=== PATIENT | female | born 1940 | race Caucasian/White ===

== ENCOUNTER 2017-01-17 22:26 | Emergency (ER) | payer MEDICARE ==
[2016-04-25 08:29] VITALS: BMI 24.8
[~2017-01-17 22:26] MED LIST: AMBIEN10 MG PO; BACTRIM DS TABL1 TAB PO; ELIQUIS2.5 MG PO; HYDROCODONE-APA1 TAB PO; MACROBID100 MG PO; MELOXICAM TAB 15M; MOBIC7.5 MG PO; MS CONTIN15 MG PO; OXYCODONE HCL5 MG PO; PAXIL20 MG PO; ULTRAM50 MG PO; XANAX2 MG PO
== END 2017-01-18 02:38 | disposition home or self-care (01) ==
LOC: D.ER 22:26
DX: S30.0XXA Contusion of lower back and pelvis, initial encounter (principal); W05.0XXA Fall from non-moving wheelchair, initial encounter; Y93.89 Activity, other specified; Y92.019 Unspecified place in single-family (private) house as the place of occurrence of the external cause; S40.011A Contusion of right shoulder, initial encounter

== ENCOUNTER 2017-08-14 08:02 | Day surgery (SDC) | payer MEDICARE ==
[~2017-08-14] VITALS: Ht 157.5 cm; Wt 68.0 kg
--- NOTE | ~2017-08-14 | OP ---
PATIENT NAME: ISIS TIMMONS MEDICAL RECORD: [id number] :38 LOCATION:[facility] ADMISSION DATE: SURGEON: MADAN MAURER DO DATE OF OPERATION: 08/14/2017 PROCEDURE PERFORMED: Right endoscopic carpal tunnel release. PREOPERATIVE DIAGNOSIS: Right carpal tunnel syndrome. POSTOPERATIVE DIAGNOSIS: Right carpal tunnel syndrome. INDICATIONS: Ms. Timmons is a 76-year-old female who presented to my office after having a nerve conduction study that showed severe carpal tunnel on the right and she wanted something done. She is numb in her fingers and tired of the pain waking her up. She also had on the left, but wanted to do the right one first due to the severity of the right one. She was consented for the procedure and warned of the risks and benefits including possible nerve injury and she consented to the procedure. DESCRIPTION OF PROCEDURE: The patient was taken to the operative suite, laid in supine position, given a gram of Ancef preoperatively. Once that was done, a timeout was performed. Everyone was in agreement with the correct side, site, and patient. The right upper extremity was prepped and draped in sterile fashion with the tourniquet above the elbow under the drapes. After it was draped and a timeout was performed, the right upper extremity was exsanguinated with an Esmarch and the tourniquet was inflated. The tourniquet was up for a total of 12 minutes during the procedure. Then, the hand was placed palm up and an incision was marked out just proximal to the wrist crease and over the transverse incision over the palmaris longus. The skin was incised at that time with a 15 blade and then careful dissection was made down to the forearm fascia with Ragnells and the forearm fascia was going through with the Ragnells. Median nerve was encountered. The distal forearm fascia was then released proximally at the incision site with a pickup and scissors and then the carpal tunnel was entered with the dilators using the hook of the hamate as a landmark and then a dilator directly on top of the nerve and then the sheath was put into place. Once the sheath was put into place, the rasp was used on the transverse carpal ligament ensuring there was only the ligament that was being cut and the probe also was used for the same purpose. Then, the blade was brought in and the transcarpal ligament was dissected and divided and the sheath was removed. This was all done under direct visualization with the camera. After that, the camera was removed and the large end of the Ragnell was used to look in the carpal tunnel to ensure that the transverse carpal ligament had been incised and there were no fibers holding it together, which was indeed the case. We then injected 10 mL of 0.25% Marcaine around the incision site and up around the site where the transverse carpal ligament was incised and then the tourniquet had been let down. There was no brisk bleeding encountered. The incision was then closed with 5-0 Monocryl with inverted interrupted sutures and then Steri-Strips were placed over the wound. Adaptic, 4 x 4 and Webril was then wrapped around the hand and wrist and a Coban was lightly placed around the hand. The patient was awakened and taken to recovery in stable condition. Blood loss was minimal. TRANSINT:[id number] Voice Confirmation ID: [id number] DOCUMENT ID: [id number] OPERATIVE REPORT [id number] ISIS TIMMONS MICHAEL D, DO at 1348 CC: [id number] DICTATION DATE: 08/14/17 1102 SEO PROFESSIONAL: 08/14/17 1226 [facility] [address] [place] [address]
[2017-08-14 08:52] LABS: HEMATOCRIT 38.3 % (36.0-48.0); HEMOGLOBIN 12.3 g/dL (12-16); MCH 29.6 pg (26.0-34.0); MCHC 32.1 g/dL (31.0-37.0); MCV 92.3 fL (80.0-100.0); MEAN PLATELET VOLUME 11.3 fL (7.4-10.4); RBC 4.15 10x6/uL (4.00-5.40); RDW 13.9 % (11.5-14.5); WBC 6.7 10x3/uL (4.8-10.8)
[2017-08-14] MEDS ORDERED: OXYBUTYNIN CHLOR5 MG PO (09:09)
[2017-08-14] MEDS ORDERED: GABAPENTIN100 MG PO (09:10)
[2017-08-14] MEDS ORDERED: ZOLOFT25 MG PO (09:11)
[2017-08-14] MEDS ORDERED: DULCOLAX10 MG/SUPP RC (09:12)
[2017-08-14] MEDS ORDERED: SENNA LAXATIVE8.6 MG PO (09:13)
[2017-08-14] MEDS ORDERED: PHENERGAN25 M1 PO (09:14)
[2017-08-14] MEDS ORDERED: ASPER-FLEX85 GM TOPICAL (09:15)
[2017-08-14] MEDS ORDERED: VITAMIN D5000 UNIT PO (09:15)
[2017-08-14] MEDS ORDERED: MELATONIN 3 MG1 TAB PO (09:16)
[2017-08-14] MEDS ORDERED: MUCUS RELIEF400 MG PO (09:16)
[2017-08-14] MEDS ORDERED: BISACODYL5 MG PO (09:17)
[2017-08-14] MEDS ORDERED: ACETAMINOPHEN325 MG PO (09:18)
[2017-08-14] MEDS ORDERED: CYCLOBENZAPRINE10 MG PO (09:18)
[2017-08-14] MEDS ORDERED: DESERYL100 MG PO (09:19)
[2017-08-14 09:27] VITALS: BP 103/63; Ht 157.5 cm; Wt 68.0 kg
[2017-08-14] MEDS ORDERED: HYDROCODONE-APA1 TAB PO (10:54)
[2017-08-14] MEDS ORDERED: DURICEF500 MG PO (10:55)
== END 2017-08-14 12:55 | disposition home or self-care (01) ==
LOC: D.OPS 08:02 → D.PAN 08:30 → D.OPS 10:30 → D.PAN 10:30 → D.OPS 11:00 → D.PAN 11:00 → D.OPS 12:55
PROVIDERS: Anesthesiology
DX: G56.01 Carpal tunnel syndrome, right upper limb (principal); M19.90 Unspecified osteoarthritis, unspecified site; Z01.812 Encounter for preprocedural laboratory examination

== ENCOUNTER 2017-08-31 08:30 | Day surgery (SDC) | payer MEDICARE ==
[~2017-08-31] VITALS: Ht 157.5 cm; Wt 68.0 kg
--- NOTE | ~2017-08-31 | OP ---
PATIENT NAME: ISIS TIMMONS MEDICAL RECORD: [id number] :38 LOCATION:[facility] ADMISSION DATE: SURGEON: MADAN MAURER DO DATE OF OPERATION: 08/31/2017 PROCEDURE PERFORMED: Left endoscopic carpal tunnel release. PREOPERATIVE DIAGNOSIS: Left carpal tunnel syndrome. POSTOPERATIVE DIAGNOSIS: Left carpal tunnel syndrome. INDICATIONS: Ms. Timmons is a 76-year-old female who had bilateral carpal tunnel release of the right one done 2 weeks ago and one in the left one done again today. She is scheduled for the surgery. She is aware of the risks and benefits of the procedure and consents to the procedure. SURGEON: Madan Maurer DO TOURNIQUET TIME: 11 minutes. COMPLICATIONS: None. ESTIMATED BLOOD LOSS: Minimal. DESCRIPTION OF PROCEDURE: The patient was taken to the operative suite, laid in supine position. The left upper extremity was prepped and draped in sterile fashion with a tourniquet under the drapes above the elbow. Once she was prepped and draped, a timeout was performed, everyone was in agreement with the correct site, side, and patient. The left upper extremity was exsanguinated with an Esmarch and then the tourniquet was inflated. The incision was marked out proximal to the wrist crease, just over the palmaris longus tendon approximately 1 cm in length. Once the skin incision was made, careful blunt dissection was made with 2 Ragnells down to the carpal tunnel itself. Median nerve was encountered in the proximal forearm fascia. The forearm fascia was released from distal to proximal with the scissors directly on top of the median nerve, being very careful as to not touch the nerve. The carpal tunnel was then opened with the dilators and once the was dilators dilated up enough to put the sheath and the sheath was put into place and the camera was put in and the transverse carpal ligament was probed and rasped and then the knife was brought in through the sheath and under direct visualization with the camera, it was released. Once it was released, the camera, sheath, and knife were removed and the remaining bits of transverse carpal ligament that were not fully released were released with scissors under direct visualization with the loops. Once this was done, the tourniquet was let down. Pressure was held on the wound and the incision site was closed with 5-0 Monocryl with inverted interrupted sutures and then Steri-Strips placed on the wound. Ten mL of 0.5% Marcaine without epinephrine was then injected around the area. Then, Adaptic, Telfa, Kerlix and Coban was lightly wrapped on the left arm, wrist area and the patient was awakened and taken to recovery in stable condition. TRANSINT:[id number] Voice Confirmation ID: [id number] DOCUMENT ID: [id number] OPERATIVE REPORT [id number] ISIS TIMMONS MICHAEL D, DO at 1431 CC: [id number] DICTATION DATE: 08/31/17 1612 GUEST SERVICES ATTENDANT: 08/31/17 2130 [facility] 08/31/17 [id number] [place] [address]
[~2017-08-31 08:30] MED LIST changes: +ACETAMINOPHEN325 MG PO; +ASPER-FLEX85 GM TOPICAL; +BISACODYL5 MG PO; +CYCLOBENZAPRINE10 MG PO; +DESERYL100 MG PO; +DULCOLAX10 MG/SUPP RC; +DURICEF500 MG PO; +GABAPENTIN100 MG PO; +MELATONIN 3 MG1 TAB PO; +MUCUS RELIEF400 MG PO; +OXYBUTYNIN CHLOR5 MG PO; +PHENERGAN25 M1 PO; +SENNA LAXATIVE8.6 MG PO; +VITAMIN D5000 UNIT PO; +ZOLOFT25 MG PO
[2017-08-31 09:24] LABS: HEMATOCRIT 40.5 % (36.0-48.0); HEMOGLOBIN 12.9 g/dL (12-16); MCH 29.6 pg (26.0-34.0); MCHC 31.9 g/dL (31.0-37.0); MCV 92.9 fL (80.0-100.0); MEAN PLATELET VOLUME 10.8 fL (7.4-10.4); RBC 4.36 10x6/uL (4.00-5.40); RDW 13.9 % (11.5-14.5); WBC 5.5 10x3/uL (4.8-10.8)
[2017-08-31 09:54] VITALS: BP 122/50; Ht 157.5 cm; Wt 68.0 kg
[2017-08-31] MEDS ORDERED: DURICEF500 MG PO (16:07)
[2017-08-31] MEDS ORDERED: HYDROCODONE-APA1 TAB PO (16:07)
== END 2017-08-31 18:00 | disposition home or self-care (01) ==
LOC: D.OPS 08:30 → D.PAN 11:15 → D.OPS 11:15
PROVIDERS: Anesthesiology
DX: G56.02 Carpal tunnel syndrome, left upper limb (principal); Z01.812 Encounter for preprocedural laboratory examination

== ENCOUNTER 2018-03-29 15:30 | Inpatient (IN) | payer MEDICARE, MEDICAID ==
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
--- NOTE | ~2018-03-29 | PN ---
PATIENT:ISIS VARGHESE MEDICAL RECORD: [id number] LOCATION:[facility]113 ADMISSION DATE: 03/29/18 PROGRESS NOTE DATE OF SERVICE: 04/03/2018 SUBJECTIVE: The patient's case was discussed with staff. She has no new complaint. OBJECTIVE: She denies that she would seek to harm herself, but becomes tearful when talking about her past experiences with former and her mother. She complains that her back is still hurting. ASSESSMENT: No change in diagnoses. PLAN: Supportive and educational interventions were made. The patient will be given a lidocaine patch to help with her back pain. TRANSINT:[id number] Voice Confirmation ID: [id number] DOCUMENT ID: [id number] SELENA LOCKWOOD MD at 1234 CC: [id number] DICTATION DATE: 04/03/18 1417 ADVERTISING SOLICITOR: 04/03/18 1424 ADM [id number] [place] [address]
--- NOTE | ~2018-03-29 | PN ---
PATIENT:ISIS VARGHESE MEDICAL RECORD: [id number] LOCATION:[facility] Mac ADMISSION DATE: 03/29/18 PROGRESS NOTE DATE OF SERVICE: 03/31/2018 SUBJECTIVE: The patient's case was discussed with staff. She has no new complaint. OBJECTIVE: The patient denies intent to harm herself or others. She generally tolerates her medicines well. Her mood is euthymic. She is reading the paper and telling me about its contents. ASSESSMENT: No change in diagnoses. PLAN: Brief supportive and educational interventions were made. Long-term prognosis is guarded. The patient will be maintained on current medicines, which I have reviewed. I am going to increase the dose of the Lexapro slightly. She continues to insist that her suicidal statements at the [facility] were taken out of context and she was simply expressing frustration. I find that difficult to believe. I think she did say these things with emotional force, but I think it was probably related to attention seeking character pathology rather than true intent to harm herself. There is no question that she said what was reported. She freely admits it, she just simply says it was taken out of context. I do want to see her improve with her mood a little more and be on a reasonable dose of the Lexapro before I discharge her. TRANSINT:[id number] Voice Confirmation ID: [id number] DOCUMENT ID: [id number] SELENA LOCKWOOD MD at 1059 CC: [id number] DICTATION DATE: 03/31/18 1108 RACING DRIVER: 03/31/18 1125 ADM IN [id number] [place] [address]
--- NOTE | ~2018-03-29 | DS ---
PATIENT:ISIS VARGHESE :36 MEDICAL RECORD: [id number] DISCHARGE SUMMARY ADMISSION DATE: 03/29/18 DISCHARGE DATE: 04/05/18 IDENTIFYING DATA: The patient is 77 years old and she was admitted to the hospital on a voluntary basis. CHIEF COMPLAINT: Suicidal statements. HISTORY OF PRESENT ILLNESS: The patient lives in the [facility]. The group home referred her to us because she was threatening to kill herself. Specifically, the patient said that she was going to jump through a window and cut herself with a broken glass. She freely admits to making these statements, but says she thinks the group home has blown the situation out of proportion. She tells me that she is very angry, frustrated, and depressed. She is upset with her oldest son, who has in her words kicked her out of the house and made her homeless and for this reason, she has to live in the group home. She has been in the group home for 6 months, so I am not clear why all of a sudden this is an issue. She endorses lots of vegetative depressive symptoms. HOSPITAL COURSE: The patient was admitted to the hospital and comprehensively evaluated from both a medical, psychological, and social standpoint. She was treated with both mood stabilizing and antidepressant medications and showed significant improvement. She was subsequently transferred back to the group home having made no suicidal threats. DISCHARGE DIAGNOSES: AXIS I: Major depression, moderate severity, without psychotic features. AXIS II: Deferred. AXIS III: Hypertension, osteoarthritis, hearing impairment, overactive bladder, constipation, gastroesophageal reflux disease, and fibromyalgia. AXIS IV: Moderate stressors. AXIS V: Global assessment of functioning is 45. PLAN: I suspect the patient is somewhat dramatic and prone to hyperbole and that was the reason she made these statements that precipitated the admission. Nevertheless, she does have clear and convincing symptoms and signs of a major depressive illness and she has been placed on medication. I have referred her for outpatient counseling and I think that she is not an acute danger to herself or others. She is clearly angry and upset and it may be very justifiable, but at this time I do not think she is dangerous. Follow up will be with outpatient mental health and her primary care physician at the group home. TRANSINT:[id number] Voice Confirmation ID: [id number] DOCUMENT ID: [id number] SELENA LOCKWOOD MD at 1210 CC: [id number] DICTATION DATE: 04/13/18 1226 REGIONAL EXTENSION SERVICE SPECIALIST: 04/13/18 1242 DIS IN 04/05/18 [facility] [address] [place] [address]
--- NOTE | ~2018-03-29 | PN ---
PATIENT:ISIS VARGHESE MEDICAL RECORD: [id number] LOCATION:[facility] ADMISSION DATE: 03/29/18 PROGRESS NOTE DATE OF SERVICE: 04/01/2018 SUBJECTIVE: The patient's case was discussed with staff. She has no new complaint. OBJECTIVE: The patient has a near euthymic mood and certainly no thoughts of harming herself or others. She is tolerating her medications well. ASSESSMENT: No change in diagnoses. PLAN: The patient's Lexapro is going to be increased to 15 mg daily. I anticipate she can be transitioned out of the hospital soon if this level of improvement is maintained. TRANSINT:[id number] Voice Confirmation ID: [id number] DOCUMENT ID: [id number] SELENA LOCKWOOD MD at 1406 CC: [id number] DICTATION DATE: 04/01/18 1146 HEATING UNIT MECHANIC: 04/01/18 1204 ADM IN [id number] [place] [address]
--- NOTE | ~2018-03-29 | PN ---
PATIENT:ISIS VARGHESE MEDICAL RECORD: [id number] LOCATION:[facility]aja[facility]ICKShasha Lamb113 ADMISSION DATE: 03/29/18 PROGRESS NOTE DATE OF SERVICE: 04/05/2018 SUBJECTIVE: The patient's case was discussed with staff. She has no new complaint. OBJECTIVE: The patient is displaying a euthymic mood and has no thoughts of harming herself or others. I have gotten approval from the office of long-term care today and I am going to [facility]. ASSESSMENT: No change in diagnoses. PLAN: As above. The [facility] to the [facility] today. Followup will be with her primary care [facility] physician. TRANSINT:[id number] Voice Confirmation ID: [id number] DOCUMENT ID: [id number] SELENA LOCKWOOD MD at 1243 CC: [id number] DICTATION DATE: 04/05/18 1308 PHYSICALLY IMPAIRED TEACHER: 04/05/18 1315 DIS IN 04/05/18 [id number] [place] [address]
--- NOTE | ~2018-03-29 | PN ---
PATIENT:ISIS VARGHESE MEDICAL RECORD: [id number] LOCATION:BRISSA LambFranco ADMISSION DATE: 03/29/18 PROGRESS NOTE DATE OF SERVICE: 04/04/2018 SUBJECTIVE: The patient's case was discussed with staff. She has no new complaint. OBJECTIVE: The patient denies intent to harm herself or others. She is tolerating her medicines well. Eye contact is fair. ASSESSMENT: No change in diagnoses. PLAN: The patient would like a lidocaine patch for her shoulder and her lower back. I will order another one for her. TRANSINT:[id number] Voice Confirmation ID: [id number] DOCUMENT ID: [id number] SELENA LOCKWOOD MD at 1222 CC: [id number] DICTATION DATE: 04/04/18 1303 PETROLEUM ANALYST: 04/04/18 1336 ADM IN [id number] [place] [address]
[2018-03-29 16:41] LABS: BASOPHILS 0.5 % (0-2); EOSINOPHILS 4.6 % (0-7); HEMATOCRIT 39.5 % (36.0-48.0); HEMOGLOBIN 12.9 g/dL (12-16); IMMATURE GRANULOCYTES 0.3 % (0-5); LYMPHOCYTES 29.8 % (15-50); MCH 30.1 pg (26.0-34.0); MCHC 32.7 g/dL (31.0-37.0); MCV 92.1 fL (80.0-100.0); MEAN PLATELET VOLUME 9.6 fL (7.4-10.4); MONOCYTES 5.7 % (2-11); NEUTROPHILS 59.1 % (40-80); RBC 4.29 10x6/uL (4.00-5.40); RDW 14.4 % (11.5-14.5); WBC 7.4 10x3/uL (4.8-10.8)
[2018-03-29 16:58] LABS: APPEARANCE HAZY (CLEAR); BILIRUBIN NEGATIVE (NEGATIVE); COLOR YELLOW (YELLOW); GLUCOSE NEGATIVE (NEGATIVE); KETONE NEGATIVE (NEGATIVE); NITRITE POSITIVE (NEGATIVE); PROTEIN TRACE mg/dL (NEGATIVE); UROBILINOGEN NORMAL (NORMAL)
[2018-03-29 17:00] VITALS: BP 149/63; BMI 28.8
[2018-03-29 17:10] LABS: BACTERIA MODERATE /hpf (NONE SEEN); RED CELLS - URINE 0-5 /hpf (0-5); WHITE CELLS - URINE >50 /hpf (0-5)
[2018-03-29 17:14] LABS: PLATELET COUNT 224 10x3/uL (130-400)
[2018-03-29 17:16] LABS: ALBUMIN 3.2 g/dL (3.4-5.0); ANION GAP 11.3 mmol/L (8-16); BILIRUBIN - TOTAL 0.16 mg/dL (0.2-1.3); CALCIUM 8.1 mg/dL (8.5-10.1); CARBON DIOXIDE 26.1 mmol/L (21.0-32.0); CHOL - HDL RATIO 2.5 ratio (2.3-4.1); CREATININE - SERUM 1.2 mg/dL (0.6-1.3); POTASSIUM - SERUM 4.4 mmol/L (3.5-5.1); PROTEIN - SERUM 7.2 g/dL (6.4-8.2); THYROID STIMULATING HORMONE 3.37 uIU/mL (0.36-3.74)
[2018-03-29] MEDS ORDERED: PAXIL40 MG PO (19:27)
[2018-03-29] MEDS ORDERED: MYRBETRIQ25 MG PO (19:28)
[2018-03-29] MEDS ORDERED: ZANTAC 7575 MG PO (19:29)
[2018-03-29] MEDS ORDERED: ACETAMINOPHEN325 MG PO (19:30)
[2018-03-29] MEDS ORDERED: LINZESS145 MCG PO (19:31)
[2018-03-29] MEDS ORDERED: BUSPAR10 MG PO (19:32)
[2018-03-29] MEDS ORDERED: MULTIPLE VITAMI1 TA1 PO (19:33)
[2018-03-29 21:17] VITALS: BP 154/80
[2018-03-30 10:13] VITALS: BP 139/58
[2018-03-30 21:12] VITALS: BP 154/76
[2018-03-31 09:29] VITALS: BP 134/72
[2018-03-31 12:26] VITALS: Wt 69.1 kg
[2018-03-31 19:27] VITALS: BP 133/71
[2018-04-01 08:00] VITALS: BP 133/86
[2018-04-01 19:17] VITALS: BP 142/61
[2018-04-02 06:06] LABS: VITAMIN D 25 HYDROXY 22.5 ng/mL (30.0-100.0)
[2018-04-02 08:00] VITALS: BP 139/68
[2018-04-02 11:13] LABS: FOLATE (FOLIC ACID) - SERUM 4.4 ng/mL (>3.0)
[2018-04-02 20:15] VITALS: BP 132/54
[2018-04-03 03:11] LABS: RAPID PLASMA REAGIN Non Reactive (Non Reactive)
[2018-04-03 08:27] VITALS: BP 187/82
[2018-04-03 19:53] VITALS: BP 135/55
[2018-04-04 10:21] VITALS: BP 104/71
[2018-04-04 22:29] VITALS: BP 142/56
[2018-04-05 08:54] VITALS: BP 122/64
[2018-04-05] MEDS ORDERED: LEXAPRO20 MG PO (09:56)
[2018-04-05] MEDS ORDERED: MAG-OX 400 MG400 MG PO (09:57)
[2018-04-05] MEDS ORDERED: TUMS500 MG PO (09:57)
[2018-04-05] MEDS ORDERED: OXYTROL PATCH1 PATCH TRANSDERM (09:58)
[2018-04-05] MEDS ORDERED: LIDODERM 5 %1 PATCH TRANSDERM (09:58)
== END 2018-04-05 14:25 | DRG 885 ==
LOC: D.PSYCH 15:30
PROVIDERS: Psychiatry & Neurology Psychiatry
DX: F32.1 Major depressive disorder, single episode, moderate (principal); N39.0 Urinary tract infection, site not specified; F41.8 Other specified anxiety disorders; M19.90 Unspecified osteoarthritis, unspecified site; B96.1 Klebsiella pneumoniae [K. pneumoniae] as the cause of diseases classified elsewhere; I10 Essential (primary) hypertension; N32.81 Overactive bladder; H91.90 Unspecified hearing loss, unspecified ear; K21.9 Gastro-esophageal reflux disease without esophagitis; M79.7 Fibromyalgia; G47.00 Insomnia, unspecified; K59.09 Other constipation; Z91.81 History of falling; E55.9 Vitamin D deficiency, unspecified

== ENCOUNTER → 2018-08-13 14:12 | Outpatient (CLI) | payer MEDICARE ==
[2018-03-31 12:26] VITALS: BMI 28.7
[~2018-08-13 14:12] MED LIST changes: +BUSPAR10 MG PO; +LEXAPRO20 MG PO; +LIDODERM 5 %1 PATCH TRANSDERM; +LINZESS145 MCG PO; +MAG-OX 400 MG400 MG PO; +MULTIPLE VITAMI1 TA1 PO; +MYRBETRIQ25 MG PO; +OXYTROL PATCH1 PATCH TRANSDERM; +PAXIL40 MG PO; +TUMS500 MG PO; +ZANTAC 7575 MG PO
== END | disposition home or self-care (01) ==
LOC: D.CT 14:12
DX: T84.030D Mechanical loosening of internal right hip prosthetic joint, subsequent encounter (principal)